=== PATIENT | female | born 1970 | race Caucasian/White ===

== ENCOUNTER 2021-05-02 15:39 | Emergency (ER) | payer BC, OTHER | END 2021-05-02 16:04 | disposition home or self-care (01) | LOC: JVIRT 15:39 | DX: J02.9 Acute pharyngitis, unspecified (principal); Z20.822 Contact with and (suspected) exposure to COVID-19 | CPT/HCPCS: 87651; 87804; C9803-CS; Q3014-GT; U0003; U0005 ==

== ENCOUNTER 2021-05-03 14:17 | Emergency (ER) | payer BC ==
[2021-05-03 14:31] VITALS: BP 149/82; PULSE 103; TEMP 100.7; BMI 29.5
[2021-05-03] MEDS ORDERED: ONDANSETRON *ODT* 4 MG TABLET SL ONE (15:22)
[2021-05-03] MEDS ORDERED: ONDANSETRON *ODT* 4 MG TABLET ONE (16:01)
== END 2021-05-03 16:30 | disposition home or self-care (01) ==
LOC: JER 14:17
DX: U07.1 COVID-19 (principal)
CPT/HCPCS: 71046-TC-FY; 87804; 99284-25; C9803-CS; U0003; U0005

== ENCOUNTER 2021-08-05 11:44 | Emergency (ER) | payer OTHER, BC ==
[2021-08-05 11:53] VITALS: BP 152/82; PULSE 93; TEMP 97.6; BMI 31.0
[2021-08-05] MEDS ORDERED: KETOROLAC TROMETHAMINE 30 MG/1 ML VIAL IM ONE (12:54)
[2021-08-05] MEDS ORDERED: KETOROLAC TROMETHAMINE 30 MG/1 ML VIAL ONE (12:55)
== END 2021-08-05 13:02 | disposition home or self-care (01) ==
LOC: JERFT 11:44 → JER 11:44 → JERFT 13:02
PROC: 3E023GC Introduction of Other Therapeutic Substance into Muscle, Percutaneous Approach (ICD-10-PCS; principal; 2021-08-05)
DX: S70.01XA Contusion of right hip, initial encounter (principal); S70.11XA Contusion of right thigh, initial encounter; W19.XXXA Unspecified fall, initial encounter
CPT/HCPCS: 72170-TC-FY; 73070-TC-RT-FY; 99284-25

== ENCOUNTER 2021-10-13 11:12 | Emergency (ER) | payer OTHER, BC ==
[2021-10-13 11:31] VITALS: BP 131/80; PULSE 85; TEMP 98.4; BMI 31.0
[2021-10-13] MEDS ORDERED: RALTEGRAVIR POTASSIUM 400 MG TAB PO ONE (12:01)
[2021-10-13] MEDS ORDERED: EMTRICITABINE 200MG/TENOFOVIR 300MG PO ONE (12:01)
[2021-10-13] MEDS ORDERED: HIV POST EXPOSURE PROPHYLAXIS KIT PO ONE (12:08)
[2021-10-13 12:44] LABS: BASO % 0.6 % (0-2.0); EOS % 0.7 % (0-4.5); HEMATOCRIT 43.1 % (32.4-45.2); HEMOGLOBIN 14.6 GM/dL (10.7-15.3); LYMPH % 37.4 % (8-40); MCH 29.7 pg (25.7-33.7); MEAN CELL VOLUME 87.4 fl (80-96); MEAN PLT VOLUME 7.6 fl (7.5-11.1); MONO % 6.5 % (3.8-10.2); NEUT % 54.8 % (42.8-82.8); PLATELET COUNT 381 10^3/uL (134-434); RBC 4.93 M/mm3 (3.60-5.2); RDW 12.1 % (11.6-15.6); WHITE BLOOD COUNT 11.1 K/mm3 (4.0-10.0)
[2021-10-13 13:36] LABS: CALCIUM 9.3 mg/dL (8.5-10.1)
[2021-10-13 13:37] LABS: ALBUMIN 4.2 g/dl (3.4-5.0); BLOOD UREA NITROGEN 21.1 mg/dL (7-18)
[2021-10-13 13:39] LABS: URIC ACID 5.9 mg/dL (2.6-7.2)
[2021-10-13 13:40] LABS: CREATININE 0.8 mg/dL (0.55-1.3)
[2021-10-13 13:41] LABS: PHOSPHOROUS 4.2 mg/dL (2.5-4.9)
[2021-10-13 13:42] LABS: BILIRUBIN,TOTAL 0.7 mg/dL (0.2-1)
[2021-10-13 16:33] LABS: HIV INTERPRETATION NEGATIVE (NEGATIVE)
== END 2021-10-13 12:40 | disposition home or self-care (01) ==
LOC: JERFT 11:12 → JER 11:12 → JERFT 12:40
DX: S61.032A Puncture wound without foreign body of left thumb without damage to nail, initial encounter (principal); W46.1XXA Contact with contaminated hypodermic needle, initial encounter
CPT/HCPCS: 36415; 80053; 82465; 82977; 83615; 84100; 84478; 84550; 84702; 85025; 86704; 86709; 86803; 87340; 87389; 87517; 99283-25

== ENCOUNTER 2023-04-07 15:29 | Emergency (ER) | payer BC ==
[2023-04-07 16:01] VITALS: RESP 18; TEMP 98; BMI 31.0
[2023-04-07 16:04] VITALS: BP 131/75; PULSE 87
[2023-04-07] MEDS ORDERED: ACETAMINOPHEN 1000 MG/100 ML BAG IVPB ONE (16:47)
[2023-04-07] MEDS ORDERED: SODIUM CHLORIDE 0.9% 500 ML INFUS.BAG IV ONE (16:47)
[2023-04-07] MEDS ORDERED: MAG HYDROX/AL HYDROX/SIMETH 30 ML UNIT-DOSE CUP PO ONE (16:48)
[2023-04-07] MEDS ORDERED: FAMOTIDINE 20 MG/50 ML IVPB 20 MG/50 ML MG IVPB ONE ×2 (16:48→16:51)
[2023-04-07] MEDS ORDERED: ACETAMINOPHEN INJECTION 100 ML IVPB ONE (16:51)
[2023-04-07] MEDS ORDERED: MAG HYDROX/AL HYDROX/SIMETH 30 ML UNIT-DOSE CUP ONE (16:51)
[2023-04-07 17:14] LABS: BASO % 0.7 % (0-2.0); EOS % 0.6 % (0-4.5); HEMATOCRIT 43.2 % (32.4-45.2); HEMOGLOBIN 14.8 GM/dL (10.7-15.3); LYMPH % 25.4 % (8-40); MCH 30.4 pg (25.7-33.7); MCHC 34.3 g/dl (32.0-36.0); MEAN CELL VOLUME 88.7 fl (80-96); MEAN PLT VOLUME 6.9 fl (7.5-11.1); MONO % 6.8 % (3.8-10.2); NEUT % 66.5 % (42.8-82.8); PLATELET COUNT 377 10^3/uL (134-434); RBC 4.86 M/mm3 (3.60-5.2); RDW 12.8 % (11.6-15.6); WHITE BLOOD COUNT 14.2 K/mm3 (4.0-10.0)
[2023-04-07 17:36] LABS: POTASSIUM 3.7 mmol/L (3.5-5.1)
[2023-04-07 17:39] LABS: ALBUMIN 3.8 g/dl (3.4-5.0); BLOOD UREA NITROGEN 16.4 mg/dL (7-18); CALCIUM 8.9 mg/dL (8.5-10.1); MAGNESIUM 2.4 mg/dL (1.8-2.4)
[2023-04-07 17:42] LABS: CREATININE 0.9 mg/dL (0.55-1.3)
[2023-04-07 17:44] LABS: BILIRUBIN,TOTAL 0.3 mg/dL (0.2-1); TOT PROT 7.6 g/dl (6.4-8.2)
[2023-04-07] MEDS ORDERED: KETOROLAC TROMETHAMINE 30 MG/1 ML VIAL IM ONE (19:00)
[2023-04-07] MEDS ORDERED: KETOROLAC TROMETHAMINE 30 MG/1 ML VIAL ONE (19:00)
== END 2023-04-07 19:49 | disposition home or self-care (01) ==
LOC: JER 15:29
PROC: 3E033GC Introduction of Other Therapeutic Substance into Peripheral Vein, Percutaneous Approach (ICD-10-PCS; principal; 2023-04-07)
PROC: 3E033NZ Introduction of Analgesics, Hypnotics, Sedatives into Peripheral Vein, Percutaneous Approach (ICD-10-PCS; 2023-04-07)
PROC: 3E0233Z Introduction of Anti-inflammatory into Muscle, Percutaneous Approach (ICD-10-PCS; 2023-04-07)
DX: R51.9 Headache, unspecified (principal); R11.10 Vomiting, unspecified; R42 Dizziness and giddiness; J02.9 Acute pharyngitis, unspecified; R05.9 Cough, unspecified
CPT/HCPCS: 36415; 80053; 83735; 85025; 99284-25

== ENCOUNTER 2023-10-01 09:09 | Emergency (ER) | payer BC ==
[2023-10-01 09:15] VITALS: BP 137/58; PULSE 79; RESP 18; TEMP 98; BMI 34.0
[2023-10-01] MEDS ORDERED: ACETAMINOPHEN 500 MG TABLET (FP) ONE (09:30)
[2023-10-01] MEDS ORDERED: LIDOCAINE 4% PATCH TP ONE (09:30)
[2023-10-01] MEDS ORDERED: KETOROLAC TROMETHAMINE 30 MG/1 ML VIAL ONE (09:30)
[2023-10-01] MEDS ORDERED: ONDANSETRON *ODT* 4 MG TABLET ONE (09:31)
[2023-10-01] MEDS: LIDOCAINE 4% PATCH TP ONE (09:37)
[2023-10-01] MEDS: KETOROLAC TROMETHAMINE 30 MG/1 ML VIAL IM ONE (09:37)
[2023-10-01] MEDS: ACETAMINOPHEN 500 MG TABLET (FP) PO ONE (09:37)
[2023-10-01] MEDS: ONDANSETRON *ODT* 4 MG TABLET SL ONE (09:37)
[2023-10-01] MEDS ORDERED: traMADol HCL 50 MG TABLET PO ONE (10:24)
[2023-10-01] MEDS ORDERED: LIDOCAINE PATCH REMOVAL MC ONE (22:00)
== END 2023-10-01 10:36 | disposition home or self-care (01) ==
LOC: JERFT 09:09
PROC: 3E0133Z Introduction of Anti-inflammatory into Subcutaneous Tissue, Percutaneous Approach (ICD-10-PCS; principal; 2023-10-01)
DX: M62.838 Other muscle spasm (principal); M54.2 Cervicalgia; R11.0 Nausea
CPT/HCPCS: 99284-25; Q0162